=== PATIENT | female | born 1935 | race Caucasian/White ===

== ENCOUNTER → 2017-02-23 | Outpatient (CLI) | payer MEDICARE, OTHER ==
--- NOTE | 2017-02-23 18:57 | Diagnostic Imaging Report ---
Digital mammogram bilateral screening with tomosynthesis. This study was compared to the prior exams of 12/31/2015, 12/05/2014, and 09/14/2013. At this time, there are no current complaints. The current study was also evaluated with a Computer Aided Detection (CAD) system. FINDINGS: There are scattered fibroglandular densities in both breasts which could obscure a lesion. Deep in the left breast roughly 9 cm from the nipple there is a fairly well-circumscribed 4 mm nodular density. This does seem to have developed in the interval since the prior exam. The tomographic views suggest that this has a smooth margin and most likely this is a benign process. Even so, I would recommend that ultrasound be performed for further study. The overall appearance of the breasts is otherwise no different. There is no primary or secondary sign of malignancy noted. IMPRESSION: Ultrasound will be recommended for further evaluation of the newly developed nodular density deep in the mid portion of the left breast. ACR BI-RADS Category 0: Incomplete. (Needs additional imaging evaluation). Result letter will be mailed to the patient. Note: At least 10% of breast cancer is not imaged by mammography. Dictated by: Dictated on workstation # [id number]
== END ==
LOC: RAD 14:08
PROVIDERS: ATTEND Family Medicine
DX: Z12.31 Encounter for screening mammogram for malignant neoplasm of breast (principal); R92.8 Other abnormal and inconclusive findings on diagnostic imaging of breast
CPT/HCPCS: 77067

== ENCOUNTER → 2017-03-08 | Outpatient (CLI) | payer MEDICARE, OTHER ==
--- NOTE | 2017-03-08 13:45 | Diagnostic Imaging Report ---
INDICATION: Abnormal mammogram. TECHNIQUE: Multiple real-time grayscale images were obtained of the left breast in various projections. FINDINGS: There is a tiny superficial cyst in the left breast at 7 o'clock position, 9 cm from the nipple measuring 4 mm. This is likely related to the dermis. No other discrete solid or cystic masses are appreciated. IMPRESSION: Benign. 4 mm benign-appearing cyst likely related to the dermis very superficial in the 7 o'clock position of the left breast, 9 cm from the nipple. This appears to correspond with the mammographic abnormality. ACR BI-RADS Category 2: Benign findings. Dictated by: Dictated on workstation # [id number]
== END ==
LOC: RAD 10:45
PROVIDERS: ATTEND Family Medicine
DX: N60.02 Solitary cyst of left breast (principal)
CPT/HCPCS: 76641